=== PATIENT | female | born 1935 | race Caucasian/White ===

== ENCOUNTER → 2019-10-18 14:28 | Outpatient (BNVA) | payer MEDICARE, SELFPAY | PROVIDERS: Family Provider Family Medicine; PCP Family Medicine; Visit Provider Nurse Practitioner Family | DX: R05 Cough (principal); R06.02 Shortness of breath; I70.0 Atherosclerosis of aorta; I51.7 Cardiomegaly | CPT/HCPCS: 71046; 80053; 85025 ==